=== PATIENT | male | born 1940 | race Caucasian/White ===

== ENCOUNTER 2018-03-04 08:30 | Outpatient (RCR) | payer MEDICARE, SELFPAY | END 2018-03-17 14:58 | LOC: SP 08:30 | PROVIDERS: Family Provider Internal Medicine; PCP Internal Medicine; Visit Provider Internal Medicine | DX: R13.10 Dysphagia, unspecified (principal) | CPT/HCPCS: 92507; 92526; 92610 ==

== ENCOUNTER 2018-06-19 11:24 | Day surgery (SDC) | payer MEDICARE, SELFPAY ==
[2018-06-11 13:20] VITALS: BMI 24.2
[2018-06-19] VITALS (8 sets, daily range): BP systolic 137–158; BP diastolic 73–92; PULSE 72–85; RESP 12–22; TEMP 36.2–36.7; O2SAT 94–99; BMI 24.2
[2018-06-19] MEDS: LACTATED RINGERS 1,000 ML 100 ML IV (12:08)
--- NOTE | 2018-06-19 13:00 | PM.PREOP ---
Pre-operative Note Interval Note History & Physical reviewed/Exam performed by Physician: Yes Changes to H&P: No
--- NOTE | 2018-06-19 13:14 | SUR.OPER ---
Supine on padded OR bed, head on pillow, arms secured on padded arm boards at <90 degrees abduction, legs uncrossed, safety belt at thigh, tape over blanket over lower legs.
[2018-06-19] MEDS: CEFAZOLIN 2 GM/100 ML FROZ.PIGGY IV (13:38)
[2018-06-19] MEDS: BUPIVACAINE 0.5% (PF) VIAL 30 ML INJ (14:03)
--- NOTE | 2018-06-19 15:03 | PM.OP.1 ---
Operative Date/Time/Diagnoses Date of procedure: 06/19/18 Time of procedure: 15:03 Post-op diagnosis: same (Indirect and direct hernias) Procedure & Clinicians Procedure: Repair with plug and patch technique Same procedure as scheduled: Yes Indications: Symptomatic hernia Surgeon: Rubén Barger Click Yes if Unassisted: Yes Anesthesia Type: General Operative Notes Findings: Small indirect and direct hernia Closure Type: primary Specimen(s): none sent Implants & Drains: Mesh Estimated Blood Loss (mL): 10 Blood products transfused: none Procedure in detail: The patient was placed supine on the operating room table and underwent general LMA anesthesia. He was prepped and draped in the usual fashion. A transverse incision was made overlying the internal ring and carried down to the level of the external oblique. The external oblique was opened parallel with its fibers through the external ring. The cord structures were elevated. The cremaster was opened proximally and search made for an indirect sac. A small indirect sac was found and from surrounding structures. It was opened and suture ligated at the level the deep epigastric vessels. The distal portion was removed. The floor was examined and was found to be rather weak and consistent with a direct hernia. I actually reapproximated tissues of the floor to strengthen it suturing the medial transversalis to the ileopubic tract. . A patch was placed across the floor and tacked at the pubic tubercle, the posterior lamella of the anterior rectus sheath, the ilioinguinal ligament, and superior lateral to the cord. The opening was modified as necessary to prevent tight constriction of the cord. Sutures of 0 Tycron were used to secure the mesh. The external oblique was closed with a running 3 0 Vicryl. The subcu was closed with interrupted 3 0 Polysorb. The skin was closed with a running 4 0 Vicryl subcuticular stitch and Steri-Strips. Dressing was applied, the patient was awakened, and the patient was taken to the recovery area in good condition. Complications: none Condition: stable Disposition: PACU
[2018-06-19] MEDS: OXYCODONE/ACETAMINOPHEN 5/325 TABLET 1 TAB PO (15:25)
== END 2018-06-19 16:18 | disposition home or self-care (01) ==
PROVIDERS: PCP Internal Medicine; Visit Provider Specialist
PROC: (CPT 49505; principal; 2018-06-19 12:15)
DX: K40.90 Unilateral inguinal hernia, without obstruction or gangrene, not specified as recurrent (principal); I25.10 Atherosclerotic heart disease of native coronary artery without angina pectoris; I10 Essential (primary) hypertension; I25.2 Old myocardial infarction
CPT/HCPCS: 49505; C1781; J0690; J1100; J2405; J2704; J3010

== ENCOUNTER → 2018-09-01 07:34 | Outpatient (CLI) | payer MEDICARE, SELFPAY ==
[2018-09-01 11:02] LABS: HEMOLYSIS < 15 (0-50); Potassium 3.9 mmol/L (3.4-5.1)
== END ==
PROVIDERS: PCP Internal Medicine; Visit Provider Internal Medicine
DX: E87.6 Hypokalemia (principal)
CPT/HCPCS: 36415; 84132

== ENCOUNTER 2019-02-23 15:53 | Emergency (ER) | payer MEDICARE, SELFPAY ==
[2019-02-23 15:55] VITALS: BP 132/64; PULSE 68; RESP 20; TEMP 36.4; O2SAT 99
--- NOTE | 2019-02-23 17:44 | ED_ITS ---
HPI - GI Bleed General Chief complaint: GI Bleed Stated complaint: DIARRHEA SEVERE BLEEDING Time Seen by Provider: 02/23/19 17:00 Source: patient Mode of arrival: Ambulatory Limitations: no limitations History of Present Illness HPI Narrative: 79-year-old male nonsmoker with history of hypertension and prior stroke presents with his in the chief complaint of painless bright red blood per rectum associated with some episodes of loose stool earlier today. The patient is not dizzy nor weak or lightheaded. He denies any fever or chills. He denies any recent antibiotics, international travel or exposure to ill persons. Last endoscopy was a few years ago and apparently normal. Amount of blood is minimal per whom saw it in the toilet. No dark and tarry stool. No coffee-ground emesis. The patient is asymptomatic MD complaint: other Onset (ago): hour(s) Severity: mild Relieving factors: none Exacerbating factors: none Associated symptoms: denies other symptoms Treatments Prior to Arrival: none Related Data Home Medications Medication Instructions Recorded Confirmed [NASOCORT] PRN PRN #0 09/28/16 07/02/18 olopatadine [Pataday] 0.2 % OPHTH #0 12/03/16 07/02/18 amlodipine 10 mg tablet 10 mg PO DAILY 06/04/18 02/23/19 hydrochlorothiazide 25 mg tablet 25 mg PO DAILY 06/04/18 02/23/19 latanoprost 0.005 % eye drops 1 drp OPHTHALMIC (EYE) DIRECTED 06/04/18 02/23/19 ml metoprolol succinate 50 mg capsule 50 mg PO DAILY 06/04/18 02/23/19 sprinkle, ext. release 24 hr nitroglycerin 0.4 mg sublingual 0.4 mg SL Q5-15M PRN 06/04/18 07/02/18 tablet olopatadine 0.2 % eye drops OPHTHALMIC (EYE) .prn ml 06/04/18 07/02/18 rosuvastatin 5 mg tablet 5 mg PO DAILY 06/04/18 07/02/18 triamcinolone acetonide 55 mcg 1 spray NASAL DAILY 06/04/18 07/02/18 nasal spray aerosol coQ10 (ubiquinol) 100 mg PO DAILY 06/11/18 07/02/18 ezetimibe 10 mg PO DAILY 06/11/18 02/23/19 clopidogrel 75 mg PO DAILY 02/23/19 02/23/19 losartan 100 mg PO DAILY 02/23/19 02/23/19 potassium chloride 10 meq PO BID 02/23/19 02/23/19 Allergies Allergy/AdvReac Type Severity Reaction Status Date / Time niacin [NIACIN] AdvReac Intermediate FLUSHING Verified 07/02/18 13:15 red man syndrome pravastatin [PRAVASTATIN] AdvReac Mild MUSCLE Verified 07/02/18 13:15 MYLAGIA simvastatin [SIMVASTATIN] AdvReac Mild MUSCLE Verified 07/02/18 13:15 MYALGIA TREE NUTS Allergy Severe Anaphylaxis Uncoded 07/02/18 13:15 FRESH FRUIT Allergy Intermediate oral Uncoded 07/02/18 13:15 itching Review of Systems Constitutional Constitutional: Denies chills, Denies fatigue, Denies fever(s), Denies frequent falls, Denies lethargy and Denies weakness Eyes Eyes: Denies change in vision, Denies eye discharge, Denies irritation and Denies loss of vision ENT Ears, Nose, Mouth, and Throat: Denies change in voice, Denies dizziness, Denies neck pain, Denies sore throat and Denies throat swelling Cardiovascular Cardiovascular: Denies chest pain, Denies irregular heart rhythm, Denies lightheadedness, Denies palpitations, Denies dyspnea, Denies dyspnea on exertion and Denies orthopnea Respiratory Respiratory: Denies cough, Denies dyspnea, Denies dyspnea on exertion and Denies wheezing Gastrointestinal Gastrointestinal: Denies abdominal pain, Reports hematochezia, Denies change in bowel habits, Denies diarrhea, Denies nausea and Denies vomiting Genitourinary Genitourinary: Denies hematuria, Denies flank pain, Denies urinary incontinence and Denies urinary urgency Musculoskeletal Musculoskeletal: Denies back pain, Denies muscle weakness, Denies neck pain, Denies numbness and Denies tingling Integumentary/Breasts Skin/Breast: Denies pruritus, Denies erythema, Denies rash and Denies wounds Neurologic Neurologic: Denies behavioral changes, Denies confusion, Denies dizziness, Denies frequent falls, Denies loss of vision, Denies numbness, Denies tingling and Denies weakness Psychiatric Psychiatric: Denies anxiety, Denies behavioral changes, Denies confusion, Denies depression, Denies homicidal ideation and Denies suicidal ideation Endocrine Endocrine: Denies fatigue, Denies flushing and Denies palpitations Hematologic/Lymphatic Hematologic/Lymphatic: Denies easy bruising Allergic/Immunologic Allergic/Immunologic: Denies urticaria, Denies throat swelling and Denies wheezing [facility] Medical History Bruises easily (Acute) Difficulty swallowing (Acute) Environmental allergies (Acute) GERD (gastroesophageal reflux disease) (Acute) H/O: stroke (Resolved ~2009) Hard of hearing (Acute) History of constipation (Acute) History of myocardial infarction in adulthood (Resolved ~05/21/14) Hyperlipidemia (Acute) Hypertension (Acute) Right inguinal hernia (Acute) Skin cancer (Acute) Surgical History H/O prostatectomy (Resolved) History of tonsillectomy (Acute) Family History (Updated 06/04/18 @ 09:36 by Kitty Marte LPN) Mother Hypertension Stroke Father Heart disease Sister Cancer Social History (Updated 06/04/18 @ 09:37 by Kitty Marte LPN) marital status: household members: spouse occupational status: previously employed Smoking Status: Former smoker alcohol intake: current substance use type: does not use Family History Mother Hypertension Stroke Father Heart disease Sister Cancer Social History marital status: household members: spouse occupational status: previously employed Smoking Status: Former smoker alcohol intake: current substance use type: does not use Exam Narrative Exam Narrative: GENERAL: [79] year old patient appears stated age. Well- nourished, well-developed patient, in mild distress. HEAD: Atraumatic. Normocephalic. EYES: Pupils equal round and reactive. Extraocular motions intact. No scleral icterus. No injection or drainage. ENT: Nose without bleeding, purulent drainage. Throat without erythema, tonsillar hypertrophy or exudate. Airway patent. NECK: Trachea midline. Non tender CARDIOVASCULAR: Regular rate and rhythm without murmurs, gallops, or rubs. RESPIRATORY: Clear to auscultation. Breath sounds equal bilaterally. No wheezes, rales, or rhonchi. GASTROINTESTINAL: Abdomen soft, non-tender, nondistended. RECTAL: EXTREMITIES: No edema or joint tenderness. BACK: Nontender without deformity or crepitance. No flank tenderness. NEURO: AOx3. SKIN: No rash or erythema of visible areas Initial Vital Signs Initial Vital Signs: Vital Signs Temperature 97.5 F L 02/23/19 15:55 Pulse Rate 68 02/23/19 15:55 Respiratory Rate 20 02/23/19 15:55 Blood Pressure 132/64 02/23/19 15:55 Pulse Oximetry 99 02/23/19 15:55 Course Orders Ordered: ED Orders 02/23/19 17:40 Complete Blood Count AUTO DIFF Stat Comprehensive Metabolic Panel Stat Prothrombin Time INR Stat Type and Screen Stat 02/23/19 18:28 XR acute abdomen series Stat Consultations Consultation #1: discussed possibility of observation vs. staying local over night, but patient and feel very strongly about going back home. They have been given extensive return precautions and highly prefer to go home Vital Signs Vital signs: Vital Signs - 8 hr 02/23/19 15:55 02/23/19 18:00 Temperature 97.5 F L Pulse Rate 68 62 Respiratory Rate 20 18 Blood Pressure 132/64 Blood Pressure [Left Arm] 129/54 L Pulse Oximetry 99 98 MDM - GI Bleed Lab Data Result diagrams: 02/23/19 17:40 02/23/19 17:40 Labs: Lab Results 02/23/19 02/23/19 02/23/19 Range/Units 17:40 17:40 17:40 WBC 9.4 (4.5-11.0) X10^3/uL RBC 4.47 L (4.5-5.9) X10^6/uL Hgb 13.7 (13.5-17.5) g/dL Hct 41.0 (41-53) % MCV 91.8 (80-100) fL MCH 30.8 (26-34) PG MCHC 33.5 (30-36) % RDW 13.5 (11.6-14.8) % Plt Count 254 (150-400) X10^3/uL Neut % (Auto) 71.2 (50-75) % Lymph % (Auto) 19.4 L (25-40) % Bonner % (Auto) 7.5 (3-14) % Eos % (Auto) 1.3 L (2-4) % Baso % (Auto) 0.6 (0-2) % Neut # (Auto) 6700 (6656-4734) /uL Lymph # (Auto) 1800 (5310-8394) /uL Bonner # (Auto) 700 (0-900) /uL Eos # (Auto) 100 (0-450) /uL Baso # (Auto) 100 (0-100) /uL PT 11.5 (10.1-12.7) SECONDS INR 1.0 (0.9-1.3) Sodium 140 (137-145) mmol/L Potassium 4.0 (3.4-5.1) mmol/L Chloride 108 H (98-107) mmol/L Carbon Dioxide 24 (22-32) mmol/L BUN 28 H (9-20) mg/dL Creatinine 1.20 (0.66-1.25) mg/dL Estimated GFR 58.4 L (>60) mL/min BUN/Creatinine Ratio 23.3 H (6-22) Glucose 106 (80-110) mg/dL Calcium 9.1 (8.4-10.2) mg/dL Total Bilirubin 0.5 (0.2-1.3) mg/dL AST 20 (17-59) IU/L ALT 16 L (21-72) IU/L Alkaline Phosphatase 35 L (38-126) U/L Total Protein 6.6 (6.3-8.2) g/dL Albumin 3.8 (3.5-5.0) g/dL Globulin 2.8 (1.7-4.1) g/dL Albumin/Globulin Ratio 1.4 (1.0-2.8) Blood Type Antibody Screen 02/23/19 Range/Units 17:40 WBC (4.5-11.0) X10^3/uL RBC (4.5-5.9) X10^6/uL Hgb (13.5-17.5) g/dL Hct (41-53) % MCV (80-100) fL MCH (26-34) PG MCHC (30-36) % RDW (11.6-14.8) % Plt Count (150-400) X10^3/uL Neut % (Auto) (50-75) % Lymph % (Auto) (25-40) % Bonner % (Auto) (3-14) % Eos % (Auto) (2-4) % Baso % (Auto) (0-2) % Neut # (Auto) (5299-6014) /uL Lymph # (Auto) (8459-5639) /uL Bonner # (Auto) (0-900) /uL Eos # (Auto) (0-450) /uL Baso # (Auto) (0-100) /uL PT (10.1-12.7) SECONDS INR (0.9-1.3) Sodium (137-145) mmol/L Potassium (3.4-5.1) mmol/L Chloride (98-107) mmol/L Carbon Dioxide (22-32) mmol/L BUN (9-20) mg/dL Creatinine (0.66-1.25) mg/dL Estimated GFR (>60) mL/min BUN/Creatinine Ratio (6-22) Glucose (80-110) mg/dL Calcium (8.4-10.2) mg/dL Total Bilirubin (0.2-1.3) mg/dL AST (17-59) IU/L ALT (21-72) IU/L Alkaline Phosphatase (38-126) U/L Total Protein (6.3-8.2) g/dL Albumin (3.5-5.0) g/dL Globulin (1.7-4.1) g/dL Albumin/Globulin Ratio (1.0-2.8) Blood Type O Positive Antibody Screen Negative Imaging Data Abdominal x-ray: Radiologist's impression: Nelson Mendoza 79 M [address] [address] XRay Report Signed Patient: Nelson Mendoza GMR#: [id number] : 1940Acct:[id number] Age/Sex: 79 / MDate of Service: 02/23/19 Loc: ED Accession Number: [id number] Procedure: XR acute abdomen series Ordering Provider: Ned Palacios D.O. PROCEDURE: XR ACUTE ABDOMEN SERIES INDICATIONS: Abdominal pain, diarrhea TECHNIQUE: One view chest and two views of the abdomen were acquired. COMPARISON: None. FINDINGS: Surgical changes and devices: None. Chest: Lungs are clear. Heart size is enlarged. No pleural effusions. No pneumoperitoneum. Abdomen: Bowel gas pattern is normal. No suspicious calcifications. Visualized solid organ contours appear normal. Bones: No suspicious bony lesions. Mild scoliosis of thoracolumbar spine is seen. IMPRESSION: No evidence of bowel structure no gross free air. No acute cardiopulmonary pathology. Dictated by: Austin Trujillo M.D. on 02/23/2019 at 19:04 Approved by: Austin Trujillo M.D. on 02/23/2019 at 19:04 [facility] Narrative Medical decision making narrative: Multiple etiologies for patient's symptoms considered including: [Internal hemorrhoids versus diverticular bleed versus infectious diarrhea versus other. Patient completely asymptomatic, not dizzy nor weak or lightheaded. Very reassuring labs and stable vital signs. Low risk for infectious diarrhea. No episodes of blood here in the emergency department.] Patient's symptoms improved or duration of stay with above-stated therapies. Findings and discharge diagnosis discussed with patient/family followed by verbalization of understanding Return precautions discussed with patient/family whom verbalize understanding. Discharge Plan Departure Patient Disposition: Home Clinical Impression: Bright red rectal bleeding Instructions: Gastrointestinal Bleeding Activity Restrictions/Additional Instructions: *You have been diagnosed with [rectal bleeding] *What to do: * continue to take medications as directed *Follow up with your primary care provider in 2-3 days, call for an appointment. Let them know you were seen in the Emergency Department and that we ask that you be seen in follow up *Return to ER if you should have any new, worsening or concerning symptoms, such as [increased bleeding, development of pain, vomiting, fever over 101 F or other concerning symptoms] Prescriptions: No Action [NASOCORT] PRN PRN (Reason: Allergies) Qty: 0 RF: 0 olopatadine [Pataday] 2.5 ML drops 0.2 % OPHTH Qty: 0 RF: 0 amlodipine 10 mg tablet 10 mg PO DAILY RF: 0 metoprolol succinate 50 mg cap,sprinkle,ER 24hr dose pack 50 mg PO DAILY RF: 0 nitroglycerin 0.4 mg tablet, sublingual 0.4 mg SL Q5-15M PRN (Reason: Chest Pain) RF: 0 rosuvastatin 5 mg tablet 5 mg PO DAILY RF: 0 triamcinolone acetonide [Nasacort] 55 mcg aerosol,spray 1 spray NASAL DAILY RF: 0 olopatadine [Pataday] 0.2 % drops ophthalmic (eye) .prn RF: 0 latanoprost 0.005 % drops 1 drp ophthalmic (eye) DIRECTED RF: 0 hydrochlorothiazide 25 mg tablet 25 mg PO DAILY RF: 0 ezetimibe 10 mg Tablet 10 mg PO DAILY RF: 0 coQ10 (ubiquinol) 100 mg Capsule 100 mg PO DAILY RF: 0 clopidogrel 75 mg tablet 75 mg PO DAILY RF: 0 losartan 50 mg tablet 100 mg PO DAILY RF: 0 potassium chloride 10 mEq capsule, extended release 10 meq PO BID RF: 0 Referrals: Karson Recinos MD [Primary Care Provider] -
[2019-02-23 17:47] LABS: Add Manual Diff / Slide Review NO; Basophils Absolute Auto 100 /uL (0-100); Basophils Percent Auto 0.6 % (0-2); Eosinophils Absolute Auto 100 /uL (0-450); Eosinophils Percent Auto 1.3 % (2-4); Hemoglobin 13.7 g/dL (13.5-17.5); Lymphocytes Absolute Auto 1800 /uL (1100-4500); Lymphocytes Percent Auto 19.4 % (25-40); Mean Corpuscular HGB Conc 33.5 % (30-36); Mean Corpuscular Hemoglobin 30.8 PG (26-34); Mean Corpuscular Volume 91.8 fL (80-100); Monocytes Absolute Auto 700 /uL (0-900); Monocytes Percent Auto 7.5 % (3-14); Neutrophils Absolute Auto 6700 /uL (1500-7000); Neutrophils Percent Auto 71.2 % (50-75); Platelet Count 254 X10^3/uL (150-400); Red Blood Cell Count 4.47 X10^6/uL (4.5-5.9); Red Cell Distribution Width 13.5 % (11.6-14.8); White Blood Cell Count 9.4 X10^3/uL (4.5-11.0)
[2019-02-23 17:58] LABS: Prothrombin Time 11.5 SECONDS (10.1-12.7)
[2019-02-23 18:00] VITALS: BP 129/54; PULSE 62; RESP 18; O2SAT 98
[2019-02-23 18:01] LABS: Alanine Aminotransferase 16 IU/L (21-72); Albumin 3.8 g/dL (3.5-5.0); Albumin Globulin Ratio 1.4 (1.0-2.8); Alkaline Phosphatase 35 U/L (38-126); Aspartate Aminotransferase 20 IU/L (17-59); BUN Creatinine Ratio 23.3 (6-22); Bilirubin Total 0.5 mg/dL (0.2-1.3); Blood Urea Nitrogen 28 mg/dL (9-20); Calcium 9.1 mg/dL (8.4-10.2); Carbon Dioxide 24 mmol/L (22-32); Chloride 108 mmol/L (98-107); Estimated Glomerular Filt Rate 58.4 mL/min (>60); Globulin 2.8 g/dL (1.7-4.1); Glucose 106 mg/dL (80-110); HEMOLYSIS < 15 (0-50); Sodium 140 mmol/L (137-145); Total Protein 6.6 g/dL (6.3-8.2)
--- NOTE | 2019-02-23 18:28 | DI.RAD.S_ITS ---
PROCEDURE: XR ACUTE ABDOMEN SERIES INDICATIONS: Abdominal pain, diarrhea TECHNIQUE: One view chest and two views of the abdomen were acquired. COMPARISON: None. FINDINGS: Surgical changes and devices: None. Chest: Lungs are clear. Heart size is enlarged. No pleural effusions. No pneumoperitoneum. Abdomen: Bowel gas pattern is normal. No suspicious calcifications. Visualized solid organ contours appear normal. Bones: No suspicious bony lesions. Mild scoliosis of thoracolumbar spine is seen. IMPRESSION: No evidence of bowel structure no gross free air. No acute cardiopulmonary pathology. Dictated by: Austin Trujillo M.D. on 02/23/2019 at 19:04 Approved by: Austin Trujillo M.D. on 02/23/2019 at 19:04
[2019-02-23 19:32] VITALS: BP 141/78; PULSE 63; RESP 14; O2SAT 99
== END 2019-02-23 19:35 | disposition home or self-care (01) ==
PROVIDERS: Emergency Provider Emergency Medicine; PCP Internal Medicine
DX: K62.5 Hemorrhage of anus and rectum (principal)
CPT/HCPCS: 36415; 74022; 80053; 85025; 85610; 86850; 86900; 86901; 99282; 99284

== ENCOUNTER → 2019-06-01 07:37 | Outpatient (CLI) | payer MEDICARE, SELFPAY ==
[2019-06-01 09:24] LABS: Cholesterol 123 mg/dL (140-199); HDL Cholesterol 25 mg/dL (40-60); LDL Cholesterol Calculated 73 mg/dL (<100); Triglycerides 126 mg/dL (35-150)
== END ==
PROVIDERS: PCP Internal Medicine; Visit Provider Nurse Practitioner
DX: I25.10 Atherosclerotic heart disease of native coronary artery without angina pectoris (principal)
CPT/HCPCS: 36415; 80061

== ENCOUNTER → 2020-04-26 19:04 | Outpatient (ROUT) | payer MEDICARE, SELFPAY ==
[2020-04-26 19:23] LABS: Add Manual Diff / Slide Review NO; Basophils Absolute Auto 100 /uL (0-100); Basophils Percent Auto 1.4 % (0-2); Eosinophils Absolute Auto 200 /uL (0-450); Eosinophils Percent Auto 2.4 % (2-4); Hematocrit 50.3 % (41-53); Lymphocytes Absolute Auto 1800 /uL (1100-4500); Lymphocytes Percent Auto 25.2 % (25-40); Mean Corpuscular HGB Conc 33.8 % (30-36); Mean Corpuscular Hemoglobin 31.2 PG (26-34); Mean Corpuscular Volume 92.3 fL (80-100); Monocytes Absolute Auto 800 /uL (0-900); Monocytes Percent Auto 10.6 % (3-14); Neutrophils Absolute Auto 4300 /uL (1500-7000); Neutrophils Percent Auto 60.4 % (50-75); Platelet Count 277 X10^3/uL (150-400); Red Blood Cell Count 5.45 X10^6/uL (4.5-5.9); Red Cell Distribution Width 14.3 % (11.6-14.8); White Blood Cell Count 7.1 X10^3/uL (4.5-11.0)
[2020-04-26 19:32] LABS: Alanine Aminotransferase 22 IU/L (<50); Albumin 4.3 g/dL (3.5-5.0); Albumin Globulin Ratio 1.3 (1.0-2.8); Alkaline Phosphatase 53 U/L (38-126); Aspartate Aminotransferase 28 IU/L (17-59); BUN Creatinine Ratio 19.3 (6-22); Bilirubin Total 0.6 mg/dL (0.2-1.3); Blood Urea Nitrogen 22 mg/dL (9-20); Calcium 9.4 mg/dL (8.4-10.2); Carbon Dioxide 29 mmol/L (22-32); Chloride 102 mmol/L (98-107); Cholesterol 111 mg/dL (140-199); Estimated Glomerular Filt Rate > 60.0 mL/min (>60); Globulin 3.3 g/dL (1.7-4.1); Glucose 69 mg/dL (80-110); HDL Cholesterol 26 mg/dL (40-60); HEMOLYSIS < 15 (0-50); LDL Cholesterol Calculated 56 mg/dL (<100); Potassium 4.1 mmol/L (3.4-5.1); Sodium 140 mmol/L (137-145); Total Protein 7.6 g/dL (6.3-8.2); Triglycerides 147 mg/dL (35-150)
== END ==
PROVIDERS: PCP Internal Medicine; Visit Provider Internal Medicine
DX: I67.89 Other cerebrovascular disease (principal); E78.2 Mixed hyperlipidemia
CPT/HCPCS: 80053; 80061; 85025

== ENCOUNTER → 2020-09-20 18:52 | Outpatient (ROUT) | payer MEDICARE, SELFPAY ==
[2020-09-20 19:33] LABS: Aspartate Aminotransferase 31 IU/L (17-59); Blood Urea Nitrogen 18 mg/dL (9-20); Calcium 9.6 mg/dL (8.4-10.2); Carbon Dioxide 26 mmol/L (22-32); Chloride 104 mmol/L (98-107); Cholesterol 118 mg/dL (140-199); Estimated Glomerular Filt Rate > 60.0 mL/min (>60); Glucose 99 mg/dL (80-110); HDL Cholesterol 28 mg/dL (40-60); HEMOLYSIS < 15 (0-50); LDL Cholesterol Calculated 69 mg/dL (<100); Potassium 3.9 mmol/L (3.4-5.1); Sodium 143 mmol/L (137-145); Triglycerides 107 mg/dL (35-150)
== END ==
PROVIDERS: PCP Internal Medicine; Visit Provider Internal Medicine
DX: I10 Essential (primary) hypertension (principal); E78.2 Mixed hyperlipidemia
CPT/HCPCS: 80048; 80061; 84450

== ENCOUNTER → 2022-08-31 09:22 | Outpatient (CLI) | payer MEDICARE, SELFPAY ==
[2022-08-31 09:58] LABS: Hematocrit 48.4 % (41-53); Hemoglobin 16.5 g/dL (13.5-17.5); Mean Corpuscular HGB Conc 34.1 % (30-36); Mean Corpuscular Hemoglobin 31.3 PG (26-34); Mean Corpuscular Volume 91.8 fL (80-100); Platelet Count 262 X10^3/uL (150-400); Red Blood Cell Count 5.27 X10^6/uL (4.5-5.9); Red Cell Distribution Width 13.6 % (11.6-14.8); White Blood Cell Count 9.2 X10^3/uL (4.5-11.0)
[2022-08-31 11:39] LABS: TSH w/ Reflex to FT4 2.68 uIU/mL (0.47-4.68)
[2022-08-31 15:36] LABS: Alanine Aminotransferase 22 IU/L (<50); Albumin 4.4 g/dL (3.5-5.0); Albumin Globulin Ratio 1.2 (1.0-2.8); Alkaline Phosphatase 52 U/L (38-126); Aspartate Aminotransferase 28 IU/L (17-59); BUN Creatinine Ratio 17.3 (6-22); Bilirubin Total 0.6 mg/dL (0.2-1.3); Blood Urea Nitrogen 19 mg/dL (9-20); Calcium 9.4 mg/dL (8.4-10.2); Carbon Dioxide 30 mmol/L (22-32); Chloride 104 mmol/L (98-107); Cholesterol 108 mg/dL (140-199); Estimated Glomerular Filt Rate > 60 mL/min (>60); Globulin 3.6 g/dL (1.7-4.1); Glucose 104 mg/dL (80-110); HDL Cholesterol 25 mg/dL (40-60); HEMOLYSIS < 15 (0-50); LDL Cholesterol Calculated 64 mg/dL (<100); Potassium 4.5 mmol/L (3.4-5.1); Sodium 142 mmol/L (137-145); Triglycerides 97 mg/dL (35-150)
[2022-08-31 16:06] LABS: Prostate Specific Antigen 1.75 ng/mL (0.10-4.00)
== END ==
PROVIDERS: PCP Internal Medicine; Referring Provider Internal Medicine; Visit Provider Internal Medicine
DX: E78.2 Mixed hyperlipidemia (principal); N40.1 Benign prostatic hyperplasia with lower urinary tract symptoms; I10 Essential (primary) hypertension; I25.10 Atherosclerotic heart disease of native coronary artery without angina pectoris; I67.9 Cerebrovascular disease, unspecified
CPT/HCPCS: 36415; 80053; 80061; 84153; 84443; 85027

== ENCOUNTER → 2023-06-28 07:45 | Outpatient (CLI) | payer MEDICARE, SELFPAY ==
--- NOTE | 2023-06-28 07:49 | DI.US.S_ITS ---
PROCEDURE: US CAROTID DOPPLER BI INDICATIONS: Occlusion and stenosis of bilateral carotid arteri TECHNIQUE: Color and pulse Doppler interrogation was performed of both carotid systems, with image documentation and velocity measurements. COMPARISON: None. FINDINGS: Stenosis calculations are based on SRU (Society of Radiologists in Ultrasound) criteria. Right side: Brachial blood pressure: 147/72 mm Hg. Common carotid artery peak systolic velocity: 80 cm/sec. Internal carotid artery peak systolic velocity: 100 cm/sec. Internal carotid artery end diastolic velocity: 13 cm/sec. External carotid artery peak systolic velocity: 95 cm/sec. ICA/CCA peak systolic ratio: 1.3 . Cunha scale imaging description: Mild atheromatous plaque is present at the carotid bifurcation Percent internal carotid artery stenosis: Less than 50% stenosis. Vertebral artery: Flow direction is antegrade. Left side: Brachial blood pressure: 132/58 mm Hg. Common carotid artery peak systolic velocity: 54 cm/sec. Internal carotid artery peak systolic velocity: 223 cm/sec. Internal carotid artery end diastolic velocity: 25 cm/sec. External carotid artery peak systolic velocity: 185 cm/sec. ICA/CCA peak systolic ratio: 4.1. Cunha scale imaging description: Dense shadowing calcification is present at the carotid bifurcation. Percent internal carotid artery stenosis: 70% to near occlusion. Vertebral artery: Flow direction is antegrade. IMPRESSION: 1. Less than 50% stenosis of the right internal carotid artery. 2. 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 Vascular surgery consultation recommended. Dictated by: Alea High M.D. on 06/28/2023 at 13:30 Approved by: Alea High M.D. on 06/28/2023 at 13:32
== END ==
LOC: US 07:46
PROVIDERS: PCP Internal Medicine; Referring Provider Internal Medicine Cardiovascular Disease; Visit Provider Internal Medicine Cardiovascular Disease
DX: I65.23 Occlusion and stenosis of bilateral carotid arteries (principal); I25.10 Atherosclerotic heart disease of native coronary artery without angina pectoris
CPT/HCPCS: 93880

== ENCOUNTER → 2023-07-22 09:32 | Outpatient (CLI) | payer MEDICARE, SELFPAY ==
[2023-07-22 11:24] LABS: Hematocrit 47.8 % (41-53); Hemoglobin 16.4 g/dL (13.5-17.5); Mean Corpuscular HGB Conc 34.3 % (30-36); Mean Corpuscular Hemoglobin 31.9 PG (26-34); Platelet Count 247 X10^3/uL (150-400); Red Blood Cell Count 5.14 X10^6/uL (4.5-5.9); Red Cell Distribution Width 13.3 % (11.6-14.8); White Blood Cell Count 8.9 X10^3/uL (4.5-11.0)
[2023-07-22 11:38] LABS: Alanine Aminotransferase 17 IU/L (<50); Albumin 4.3 g/dL (3.5-5.0); Albumin Globulin Ratio 1.4 (1.0-2.8); Alkaline Phosphatase 48 U/L (38-126); Aspartate Aminotransferase 24 IU/L (17-59); BUN Creatinine Ratio 19.8 (6-22); Bilirubin Total 0.9 mg/dL (0.2-1.3); Blood Urea Nitrogen 20 mg/dL (9-20); Calcium 9.5 mg/dL (8.4-10.2); Carbon Dioxide 27 mmol/L (22-32); Chloride 103 mmol/L (98-107); Cholesterol 108 mg/dL (140-199); Estimated Glomerular Filt Rate > 60 mL/min (>60); Globulin 3.1 g/dL (1.7-4.1); Glucose 87 mg/dL (80-110); HDL Cholesterol 28 mg/dL (40-60); HEMOLYSIS < 15 (0-50); LDL Cholesterol Calculated 59 mg/dL (<100); Potassium 4.8 mmol/L (3.4-5.1); Sodium 141 mmol/L (137-145); Total Protein 7.4 g/dL (6.3-8.2); Triglycerides 105 mg/dL (35-150)
== END ==
PROVIDERS: PCP Internal Medicine; Referring Provider Internal Medicine; Visit Provider Internal Medicine
DX: I10 Essential (primary) hypertension (principal); E78.2 Mixed hyperlipidemia
CPT/HCPCS: 36415; 80053; 80061; 85027

== ENCOUNTER → 2024-07-13 09:10 | Outpatient (CLI) | payer MEDICARE, SELFPAY ==
[2024-07-13 10:26] LABS: Hematocrit 51.6 % (41-53); Hemoglobin 17.2 g/dL (13.5-17.5); Mean Corpuscular HGB Conc 33.3 % (30-36); Mean Corpuscular Hemoglobin 31.4 PG (26-34); Mean Corpuscular Volume 94.2 fL (80-100); Platelet Count 268 X10^3/uL (150-400); Red Blood Cell Count 5.47 X10^6/uL (4.5-5.9); Red Cell Distribution Width 13.8 % (11.6-14.8); White Blood Cell Count 8.6 X10^3/uL (4.5-11.0)
[2024-07-13 10:50] LABS: Alanine Aminotransferase 18 IU/L (<50); Albumin Globulin Ratio 1.5 (1.0-2.8); Aspartate Aminotransferase 45 IU/L (17-59); BUN Creatinine Ratio 16.7 (6-22); Bilirubin Total 1.7 mg/dL (0.2-1.3); Blood Urea Nitrogen 19 mg/dL (9-20); Calcium 9.7 mg/dL (8.4-10.2); Carbon Dioxide 28 mmol/L (22-32); Chloride 104 mmol/L (98-107); Cholesterol 126 mg/dL (140-199); Estimated Glomerular Filt Rate > 60 mL/min (>60); Globulin 3.4 g/dL (1.7-4.1); Glucose 98 mg/dL (80-110); HDL Cholesterol 36 mg/dL (40-60); LDL Cholesterol Calculated 72 mg/dL (<100); Sodium 139 mmol/L (137-145); Total Protein 8.4 g/dL (6.3-8.2); Triglycerides 91 mg/dL (35-150)
[2024-07-13 10:52] LABS: HEMOLYSIS 230 (0-50)
[2024-07-13 10:53] LABS: Alkaline Phosphatase < 20 U/L (38-126); Potassium 6.1 mmol/L (3.4-5.1)
== END ==
PROVIDERS: PCP Internal Medicine; Referring Provider Internal Medicine; Visit Provider Internal Medicine
DX: I65.23 Occlusion and stenosis of bilateral carotid arteries (principal); I10 Essential (primary) hypertension; E78.2 Mixed hyperlipidemia
CPT/HCPCS: 36415; 80053; 80061; 85027

== ENCOUNTER → 2025-01-13 08:57 | Outpatient (CLI) | payer MEDICARE, SELFPAY ==
[2025-01-13 10:26] LABS: Blood Urea Nitrogen 29 mg/dL (9-20); Calcium 9.9 mg/dL (8.4-10.2); Carbon Dioxide 28 mmol/L (22-32); Chloride 104 mmol/L (98-107); Cholesterol 195 mg/dL (140-199); Estimated Glomerular Filt Rate 59 mL/min (>60); Glucose 104 mg/dL (70-99); HDL Cholesterol 30 mg/dL (40-60); HEMOLYSIS < 15 (0-50); Potassium 4.8 mmol/L (3.4-5.1); Sodium 144 mmol/L (137-145); Triglycerides 102 mg/dL (35-150)
[2025-01-13 10:54] LABS: Prostate Specific Antigen 3.01 ng/mL (0.10-4.00)
== END ==
PROVIDERS: PCP Internal Medicine; Referring Provider Internal Medicine; Visit Provider Internal Medicine
DX: E78.2 Mixed hyperlipidemia (principal); N40.1 Benign prostatic hyperplasia with lower urinary tract symptoms; R35.1 Nocturia; I10 Essential (primary) hypertension
CPT/HCPCS: 36415; 80048; 80061; 84153; 84450